=== PATIENT | male | born 1995 | race Caucasian/White ===

== ENCOUNTER 2017-04-21 13:36 | Emergency (ER) | payer SELFPAY ==
--- NOTE | 2017-04-21 13:59 | EDM.PDOC ---
<Matthew Carroll - Last Filed: 04/21/17 14:45> ED HPI GENERAL MEDICAL PROBLEM - General Chief Complaint: ENT Problem Stated Complaint: NOSE BLEED Time Seen by Provider: 04/21/17 13:50 Source of Information: Reports: Patient History Limitations: Reports: No Limitations - History of Present Illness INITIAL COMMENTS - FREE TEXT/NARRATIVE: HISTORY AND PHYSICAL: History of present illness: 21-year-old male presents to the ER with a chief complaint of a persistent nosebleed. Nosebleed started approximately 1 hour ago and was spontaneous in nature. No trauma to the nose. Patient is not taking any anticoagulants. He has not had any easy bruising. No family hx of bleeding disorders. Over the past hour he has tried stopping the bleeding on his own by applying pressure and pinching the nose. This has not helped. He is taking no medications. He is feeling slightly lightheaded and dizzy. he has no other complaints. Review of systems: As per history of present illness and below otherwise all systems reviewed and negative. Past medical history: As per history of present illness and as reviewed below otherwise noncontributory. Surgical history: As per history of present illness and as reviewed below otherwise noncontributory. Social history: No reported history of drug or alcohol abuse. Family history: As per history of present illness and as reviewed below otherwise noncontributory. Physical exam: HEENT: Atraumatic, normocephalic, pupils reactive, negative for conjunctival pallor or scleral icterus, mucous membranes moist, blood appreciated in nares bilaterally (right greater than left). Septum assessed after bleeding controlled. One small area of mild irritation appreciated on the posterior aspect of the right septum. Diagnostics: CBC (WNL) Therapeutics: Nose clip, 1 spray of Afrin in each nostril Impression: Epistaxis Plan: #1. patient educated on keeping the nares well lubricated with vaseline using a q-tip. Patient educated to be gentle with the nose over the next few days. Patient also encouraged to get a cool mist humidifier for his apartment to help with keeping the nares moist. Patient also educated on limiting use of nasal sprays as this can cause rebound bleeding. #2. Patient will f/u with a PCP if bleeding resumes or is occuring frequently #3. Patient to return to the ER if excessive bleeding resumes for placement of a rhino rocket. Definitive disposition and diagnosis as appropriate pending reevaluation and review of above. The following information is given to patients seen in the emergency department who are being discharged to home. This information is to outline your options for follow-up care. We provide all patients seen in our emergency department with a follow-up referral. The need for follow-up, as well as the timing and circumstances, are variable depending upon the specifics of your emergency department visit. If you don't have a primary care physician on staff, we will provide you with a referral. We always advise you to contact your personal physician following an emergency department visit to inform them of the circumstance of the visit and for follow-up with them and/or the need for any referrals to a consulting specialist. The emergency department will also refer you to a specialist when appropriate. This referral assures that you have the opportunity for follow-up care with a specialist. All of these measure are taken in an effort to provide you with optimal care, which includes your follow-up. Under all circumstances we always encourage you to contact your private physician who remains a resource for coordinating your care. When calling for follow-up care, please make the office aware that this follow-up is from your recent emergency room visit. If for any reason you are refused follow-up, please contact the [facility] Emergency Department at and asked to speak to the emergency department charge nurse. [facility] [address] [place] [id number] Please call above number to setup an appointment with a Primary care provider. - Related Data Allergies Allergy/AdvReac Type Severity Reaction Status Date / Time No Known Allergies Allergy Verified 04/21/17 13:51 Home Meds: Home Meds . [No Known Home Meds] 04/21/17 [History] ED ROS ENT - Review of Systems Review Of Systems: ROS reveals no pertinent complaints other than HPI. ED EXAM, ENT - Physical Exam Exam: See Below Text/Narrative:: see dictation Course - Vital Signs Last Recorded V/S: Last Vital Signs Temp 37.0 C 04/21/17 13:51 Pulse 71 03/02/18 13:51 Resp 16 04/21/17 13:51 BP 139/63 04/21/17 13:51 Pulse Ox 96 04/21/17 13:51 - Orders/Labs/Meds Labs: Laboratory Tests 04/21/17 Range/Units 14:09 WBC 6.44 (4.0-11.0) K/uL RBC 4.70 (4.50-5.90) M/uL Hgb 14.0 (13.0-17.0) g/dL Hct 40.4 (38.0-50.0) % MCV 86.0 (80.0-98.0) fL MCH 29.8 (27.0-32.0) pg MCHC 34.7 (31.0-37.0) g/dL RDW Std Deviation 42.8 (28.0-62.0) fl RDW Coeff of Romi 14 (11.0-15.0) % Plt Count 216 (150-400) K/uL MPV 10.20 (7.40-12.00) fL Neut % (Auto) 50.8 (48.0-80.0) % Lymph % (Auto) 39.3 (16.0-40.0) % Barton % (Auto) 6.8 (0.0-15.0) % Eos % (Auto) 2.8 (0.0-7.0) % Baso % (Auto) 0.3 (0.0-1.5) % Neut # (Auto) 3.3 (1.4-5.7) K/uL Lymph # (Auto) 2.5 H (0.6-2.4) K/uL Barton # (Auto) 0.4 (0.0-0.8) K/uL Eos # (Auto) 0.2 (0.0-0.7) K/uL Baso # (Auto) 0.0 (0.0-0.1) K/uL Nucleated RBC % 0.0 /100WBC Nucleated RBCs # 0 K/uL Meds: Medications Discontinued Medications Generic Name Dose Route Start Last Admin Trade Name Freq PRN Reason Stop Dose Admin Oxymetazoline HCl 1 ml 04/21/17 14:17 04/21/17 14:25 Afrin Original 0.05% Nasal [place] JAMEE 04/21/17 14:18 1 spray ONETIME ONE Administration Departure - Departure Time of Disposition: 15:10 Disposition: Home, Self-Care 01 Condition: Good Clinical Impression: Epistaxis - Discharge Information Referrals: PCP,None [Primary Care Provider] - Forms: ED Department Discharge Additional Instructions: The following information is given to patients seen in the emergency department who are being discharged to home. This information is to outline your options for follow-up care. We provide all patients seen in our emergency department with a follow-up referral. The need for follow-up, as well as the timing and circumstances, are variable depending upon the specifics of your emergency department visit. If you don't have a primary care physician on staff, we will provide you with a referral. We always advise you to contact your personal physician following an emergency department visit to inform them of the circumstance of the visit and for follow-up with them and/or the need for any referrals to a consulting specialist. The emergency department will also refer you to a specialist when appropriate. This referral assures that you have the opportunity for followup care with a specialist. All of these measure are taken in an effort to provide you with optimal care, which includes your followup. Under all circumstances we always encourage you to contact your private physician who remains a resource for coordinating your care. When calling for followup care, please make the office aware that this follow-up is from your recent emergency room visit. If for any reason you are refused follow-up, please contact the [facility] emergency department at and ask to speak to the emergency department charge nurse. [facility] Primary care- [place] [address] Please lubricate your nose with petroleum based products as we discussed. Use coolmist humidifier at sleep times and push hydration. Do not blow or pick your nose. Please use a nasal clip if bleeding returns and return to ER as needed and as discussed. Please call and follow-up with one of our clinic providers - Problem List & Annotations (1) Epistaxis SNOMED Code(s): 074285783 Code(s): R04.0 - EPISTAXIS Status: Acute Current Visit: Yes - Problem List Review Problem List Initiated/Reviewed/Updated: Yes <Milagros Desir - Last Filed: 04/21/17 15:13> ED HPI GENERAL MEDICAL PROBLEM - History of Present Illness INITIAL COMMENTS - FREE TEXT/NARRATIVE: This Dr. Desir dictating an addendum note as he supervising physician on this case. Agree with history and physical as above and I personally seen and evaluated this patient. He did have moderate amount of blood and some clots in his nasal passages on my evaluation but there was no gross evidence of bleeding in the posterior oropharynx. He states he has never had this happen before and he denies any trauma to the area. We will continue with our evaluation and reassess for need for packing placement . I have assisted instructed the patient on how to lubricate the area with petroleum based products and need to stoppicking. The patient does freely admit that he has had an upper respiratory tract infection/pneumonia O week ago and he has been manipulating his nose quite a bit. He currently has hemostasis and does not require packing. We've advised him on reasons to return to the ED and given him a nasal clip to utilize at home if indicated and needed. ED ROS ENT - Review of Systems Review Of Systems: ROS reveals no pertinent complaints other than HPI. Departure - Departure Condition: Good
[2017-04-21] MEDS ORDERED: Oxymetazoline 0.05% Nasal Spray 15 ML Bottle NAS ONE (14:17)
== END 2017-04-21 15:18 | disposition home or self-care (01) ==
LOC: MW.ED 13:36
DX: R04.0 Epistaxis (principal)
CPT/HCPCS: 36415; 85025; 99283; A9270

== ENCOUNTER 2018-11-29 23:03 | Emergency (ER) | payer BC ==
--- NOTE | 2018-11-29 23:14 | EDM.PDOC ---
ED HPI GENERAL MEDICAL PROBLEM - General Chief Complaint: Bite:Animal, Insect Stated Complaint: DOG BITE LEFT HAND INDEX FINGER Time Seen by Provider: 11/29/18 23:11 Source of Information: Reports: Patient History Limitations: Reports: No Limitations - History of Present Illness INITIAL COMMENTS - FREE TEXT/NARRATIVE: HISTORY AND PHYSICAL: History of present illness: Patient is a 23-year-old male presents to the ED with complaint of dog bite. He states he was at the dog park about 30 minutes ago and another dog got out and came up to his dog. His dog snipped at this dog and the other dog then bit patient's hand. Patient states he did call police and they are going to contact the owners of this dog to determine it's vaccine status. He is not UTD on tetanus. Patient denies other injury and has no other complaints at this time. Review of systems: As per history of present illness and below otherwise all systems reviewed and negative. Past medical history: As per history of present illness and as reviewed below otherwise noncontributory. Surgical history: As per history of present illness and as reviewed below otherwise noncontributory. Social history: No reported history of drug or alcohol abuse. Family history: As per history of present illness and as reviewed below otherwise noncontributory. Physical exam: General: Patient sitting comfortably in no acute distress and nontoxic appearing HEENT: Atraumatic, normocephalic, pupils reactive, negative for conjunctival pallor or scleral icterus, mucous membranes moist, throat clear, neck supple, nontender, trachea midline. No meningeal signs. Lungs: Clear to auscultation, breath sounds equal bilaterally, chest nontender. Heart: S1S2, regular, negative for clicks, rubs, or overt murmur. Abdomen: Soft, nondistended, nontender. Negative for masses or hepatosplenomegaly. Negative for costovertebral tenderness. No rigidity, rebound , guarding. Pelvis: Stable nontender. Genitourinary: Deferred. Rectal: Deferred. Extremities: There are 2 superficial 0.5cm laceration to the distal left pointer finger. negative for cords or calf pain. Neurovascular unremarkable. Neuro: Awake, alert, oriented. Cranial nerves II through XII unremarkable. Cerebellum unremarkable. Motor and sensory unremarkable throughout. Exam nonfocal. Notes: Diagnostics: [] Therapeutics: tdap Prescriptions: Augmentin Impression: Dog Bite Plan: Take the antibiotic as instructed Follow up with primary care provider Return to ED as needed as discussed Definitive disposition and diagnosis as appropriate pending reevaluation and review of above. - Related Data Allergies Allergy/AdvReac Type Severity Reaction Status Date / Time No Known Allergies Allergy Verified 11/29/18 23:12 Home Meds: Home Meds . [No Known Home Meds] 04/21/17 [History] Past Medical History - Past Health History Medical/Surgical History: Denies Medical/Surgical History Social & Family History - Family History Family Medical History: Noncontributory - Caffeine Use Caffeine Use: Reports: Energy Drinks Caffeine Use Comment: "excessive amount of rockstar" ED ROS GENERAL - Review of Systems Review Of Systems: ROS reveals no pertinent complaints other than HPI. ED EXAM, ANIMAL BITE - Physical Exam Exam: See Below (see dictation) Course - Orders/Labs/Meds Orders: Active Orders 24 hr Category Date Time Status Vaccines to be Administered [RC] PER UNIT ROUTINE Care 11/29/18 23:15 Ordered Diphth,Pertuss(Acell),Tet Vac [Adacel] Med 11/29/18 23:15 Once 0.5 ml IM .ONCE ONE Departure - Departure Time of Disposition: 23:14 Disposition: Home, Self-Care 01 Condition: Good Clinical Impression: Dog bite - Discharge Information Referrals: PCP,None [Primary Care Provider] - Forms: ED Department Discharge Additional Instructions: The following information is given to patients seen in the emergency department who are being discharged to home. This information is to outline your options for follow-up care. We provide all patients seen in our emergency department with a follow-up referral. The need for follow-up, as well as the timing and circumstances, are variable depending upon the specifics of your emergency department visit. If you don't have a primary care physician on staff, we will provide you with a referral. We always advise you to contact your personal physician following an emergency department visit to inform them of the circumstance of the visit and for follow-up with them and/or the need for any referrals to a consulting specialist. The emergency department will also refer you to a specialist when appropriate. This referral assures that you have the opportunity for follow-up care with a specialist. All of these measure are taken in an effort to provide you with optimal care, which includes your follow-up. Under all circumstances we always encourage you to contact your private physician who remains a resource for coordinating your care. When calling for follow-up care, please make the office aware that this follow-up is from your recent emergency room visit. If for any reason you are refused follow-up, please contact the [facility] Emergency Department at and asked to speak to the emergency department charge nurse. [facility] [address] [place] [id number] [facility] [address] [place] [phone] Take the antibiotic as instructed Follow up with primary care provider Return to ED as needed as discussed - My Orders Last 24 Hours: My Active Orders 11/29/18 23:15 Vaccines to be Administered [RC] PER UNIT ROUTINE Diphth,Pertuss(Acell),Tet Vac [Adacel] 0.5 ml IM .ONCE ONE - Assessment/Plan Last 24 Hours: My Active Orders 11/29/18 23:15 Vaccines to be Administered [RC] PER UNIT ROUTINE Diphth,Pertuss(Acell),Tet Vac [Adacel] 0.5 ml IM .ONCE ONE
[2018-11-29] MEDS ORDERED: Diphtheria,Pertussis(Acell),Tetanus Vaccine 0.5 ML Syringe IM ONE (23:15)
== END 2018-11-30 00:13 | disposition home or self-care (01) ==
LOC: MW.ED 23:03
DX: S61.251A Open bite of left index finger without damage to nail, initial encounter (principal); Z23 Encounter for immunization; W54.0XXA Bitten by dog, initial encounter
CPT/HCPCS: 90471; 90715; 99283